=== PATIENT | female | born 1950 ===

== ENCOUNTER → 2017-04-09 | Outpatient (CLI) | payer MEDICARE, BC | END | disposition disaster alternative care site (69) | LOC: LBOND 15:38 | DX: L60.3 Nail dystrophy (principal); R20.3 Hyperesthesia ==

== ENCOUNTER → 2017-05-14 | Outpatient (CLI) | payer MEDICARE, BC | LOC: LKRMC 05:21 | DX: R91.8 Other nonspecific abnormal finding of lung field (principal) ==